=== PATIENT | male | born 1955 | race Caucasian/White ===

== ENCOUNTER 2021-06-13 14:41 | Emergency (ER) | payer BC ==
[~2021-06-13] VITALS: Ht 170.2 cm; Wt 74.4 kg
[2021-06-13 15:16] LABS: HEMOGLOBIN 9.6 gm/dl (14.0-17.5); RED BLOOD COUNT 1.42 M/UL (4.20-5.50)
[2021-06-13 15:40] LABS: BUN/CREATININE RATIO 7 (0-10)
== END 2021-06-13 22:18 | disposition short-term general hospital (02) ==
LOC: ER1 14:41
PROVIDERS: Physician Assistant
DX: I82.431 Acute embolism and thrombosis of right popliteal vein (principal); I82.811 Embolism and thrombosis of superficial veins of right lower extremity; M51.36 Other intervertebral disc degeneration, lumbar region; I73.9 Peripheral vascular disease, unspecified; F17.200 Nicotine dependence, unspecified, uncomplicated; Z20.822 Contact with and (suspected) exposure to COVID-19
CPT/HCPCS: 75635; 80053; 85025; 85610; 85730; 93005; 93925; 93971; 99284; J1644; J7040; Q9967; U0002

== ENCOUNTER → 2021-06-13 | Outpatient (CLI) | payer BC ==
[~2021-06-13] MED LIST: NAPROSYN500 MG PO; ZOFRAN4 MG PO
== END ==
LOC: KOH-I 13:52
DX: M79.89 Other specified soft tissue disorders (principal); M79.661 Pain in right lower leg; I82.431 Acute embolism and thrombosis of right popliteal vein
CPT/HCPCS: 93971